=== PATIENT | female | born 1950 | race American Indian/Alaskan Native ===

== ENCOUNTER 2020-08-03 08:32 | Day surgery (SDC) | payer MEDICARE ==
[2020-08-03 09:35] LABS: Basophils % (Auto) 0.5 % (0.0-1.8); Eosinophils # (Auto) 0.1 K/mm3 (0.0-0.4); Eosinophils % (Auto) 2.4 % (0.0-4.3); Hematocrit 39.9 % (30.3-42.9); Hemoglobin 13.2 gm/dl (10.1-14.3); Lymphocytes # (Auto) 1.8 K/mm3 (1.2-5.4); Lymphocytes % (Auto) 31.3 % (13.4-35.0); Mean Corpuscular HGB Conc 33 % (30-34); Mean Corpuscular Volume 83 fl (79-97); Monocytes # (Auto) 0.6 K/mm3 (0.0-0.8); Monocytes % (Auto) 10.8 % (0.0-7.3); Platelet Count 166 K/mm3 (140-440); Red Blood Count 4.78 M/mm3 (3.65-5.03); Red Cell Distribution Width 16.4 % (13.2-15.2)
[2020-08-03 09:57] LABS: Blood Urea Nitrogen 13 mg/dL (7-17); Calcium 8.5 mg/dL (8.4-10.2); Hemolysis Index 7
[2020-08-03] MEDS ORDERED: VANCOMYCIN/NS 1 GM/250 ML 1 GM/250 ML BAG IV NR (10:00)
[2020-08-03] MEDS ORDERED: SODIUM CHLORIDE 0.45% 1000 ML 1,000 ML IV SCH (10:00)
--- NOTE | 2020-08-03 10:06 | Anesthesia Consultation ---
Anesthesia Consult and Med Hx Date of service: 08/03/20 - Airway Anesthetic Teeth Evaluation: Dentures ROM Head & Neck: Adequate Mental/Hyoid Distance: Adequate Mallampati Class: Class III Intubation Access Assessment: Possibly Difficult - Pre-Operative Health Status ASA Pre-Surgery Classification: ASA3 Proposed Anesthetic Plan: MAC - Pulmonary Hx Smoking: Yes (former smoker quit yrs ago) Hx Respiratory Symptoms: No Hx Sleep Apnea: Yes (no CPAP) - Cardiovascular System Hx Hypertension: Yes Hx Heart Attack/AMI: Yes (2011 s/p CABG; normal ST 06/2019, normal EF 03/2020) Hx Percutaneous Transluminal Coronary Angioplasty (PTCA): Yes (2011; last dose ASA/plavix 08/02/20) Hx Pacemaker: Yes Hx Internal Defibrillator: Yes - Central Nervous System CVA: No - Endocrine Hx Renal Disease: No Hx Liver Disease: No Hx Non-Insulin Dependent Diabetes: Yes Hx Thyroid Disease: No - Other Systems Hx Obesity: Yes (BMI 37) - Additional Comments Anesthesia Medical History Comments: No hx anesthetic complications.
--- NOTE | 2020-08-03 10:06 | Anesthesia Day of Surgery ---
Anesthesia Day of Surgery - Day of Surgery Patient Examined: Yes Patient H&P Reviewed: Yes Patient is NPO: Yes
[2020-08-03 10:14] LABS: BUN/Creatinine Ratio 19
[2020-08-03 10:25] LABS: INR 1.27 (0.87-1.13)
[2020-08-03 10:26] LABS: Partial Thromboplastin Time 33.3 Sec. (24.2-36.6)
[2020-08-03] MEDS ORDERED: SODIUM CHLORIDE IRRI 1000 ML 1,000 ML, .VANCOMYCIN VIAL 1,000 MG IR NR (10:30)
[2020-08-03] MEDS ORDERED: MIDAZOLAM 2 MG/2 ML INJ ONE (10:32)
[2020-08-03] MEDS ORDERED: propofoL 200 MG/20 ML VIAL IV ONE ×3 (10:33)
[2020-08-03] MEDS ORDERED: HYDROmorphone 1 MG/1 ML INJ ONE (10:33)
[2020-08-03] MEDS ORDERED: SODIUM CHLORIDE IRRI 500 ML 0 ML IR ONE (10:35)
[2020-08-03] MEDS ORDERED: LIDOCAINE (1%) 10 MG/1 ML VIAL 20 ML MDV ONE (10:36)
[2020-08-03] MEDS ORDERED: BUPIVACAINE/PF (0.5%) 5 MG/1 ML 30 ML VIAL INFILTRATI ONE (10:36)
--- NOTE | 2020-08-03 10:39 | Short Stay Summary ---
Short Stay Documentation Date of service: 08/03/20 - History Principal diagnosis: AICD in situ H&P: obtained from office Past Medical History: CAD, diabetes, hypertension, hyperlipidemia, liver disease, other (ISAAC, h/o VT) Past Surgical History: CABG, PTCA, Other (s/p AICD) Social history: smoking (former), no alcohol abuse - Allergies and Medications Current Medications: Allergies solifenacin [From Vesicare] Allergy (Verified 08/03/20 09:11) Rash Home Medications Medication Instructions Recorded Confirmed Last Taken Type Acetaminophen [Tylenol Extra 500 mg PO PRN 08/03/20 08/03/20 Unknown History Strength] Atorvastatin [Lipitor Tab] 80 mg PO QHS 08/03/20 08/03/20 08/02/20 History 1 tab Buspirone HCl [busPIRone] 15 mg PO TID 08/03/20 08/03/20 08/02/20 History 3 tab Cholecalciferol (Vitamin D3) 2,000 unit PO QDAY 08/03/20 08/03/20 08/02/20 History [Vitamin D3 2,000 UNIT CAP] 1 tab Clopidogrel [Plavix] 75 mg PO QDAY 08/03/20 08/03/20 08/02/20 History 1 tab Duloxetine HCl [Drizalma Sprinkle] 30 mg PO DAILY 08/03/20 08/03/20 08/02/20 History 1 tab Hydralazine HCl 50 mg PO BID 08/03/20 08/03/20 08/02/20 History 1 tab Hydroxychloroquine [Plaquenil] 200 mg PO BID 08/03/20 08/03/20 08/02/20 History 1 tab Isosorbide Mononitrate [Isosorbide 30 mg PO DAILY 08/03/20 08/03/20 08/02/20 History Mononitrate ER] 1 tab Leflunomide [Arava] 20 mg PO QDAY 08/03/20 08/03/20 08/02/20 History 1 tab Metoprolol [Lopressor] 100 mg PO DAILY 08/03/20 08/03/20 08/02/20 History 1 tab Multi For Her 50 Plus Softgel 1,000 mg PO DAILY 08/03/20 08/03/20 08/02/20 History 1 tab Omeprazole 40 mg PO DAILY 08/03/20 08/03/20 08/02/20 History 1 tab Pregabalin [Lyrica] 75 mg PO TID 08/03/20 08/03/20 08/02/20 History 1 tab Spironolactone [Aldactone] 25 mg PO QDAY 08/03/20 08/03/20 08/02/20 History 1 tab Vitamin E 400 unit PO DAILY 08/03/20 08/03/20 08/02/20 History 1 tab Active Medications Sodium Chloride 1,000 ml/ (Vancomycin HCl 1,000 mg) 0 ml IR INTRAOP NR Stop: 08/03/20 11:00 Sodium Chloride (Nacl 0.45% 1000 Ml) 1,000 mls @ 50 mls/hr IV DIRECT JEN Vancomycin HCl (Vancomycin/Ns 1 Gm/250 Ml) 1 gm in 250 mls @ 166.667 mls/hr IV PREOP NR; Protocol Stop: 08/03/20 16:00 - Physical exam General appearance: no acute distress Integumentary: no rash HEENT: Atraumatic Lungs: Clear to auscultation Heart: Normal S1, Normal S2 Gastrointestinal: normal Extremities: No edema, normal temperature, normal color Neurological: Normal speech, Normal tone, Sensation intact - Brief post op/procedure progress note Date of procedure: 08/03/20 Pre-op diagnosis: AICD in situ Post-op diagnosis: same Surgeon: ROMINA HOFFMAN Estimated blood loss: none Pathology: none Condition: stable - Hospital course Hospital course: Pt with existing AICD presented on 08/03/20 for elective exchange of AICD. S/p successful exchange to Biotronik ICD. Pt tolerated procedure well. Currently stable with no complaints. - Disposition Condition at discharge: Good Disposition: DC-01 TO HOME OR SELFCARE - Discharge Diagnoses (1) AICD (automatic cardioverter/defibrillator) present Status: Chronic Short Stay Discharge Plan Activity: other (as directed on post-implant education sheet provided at bed side) Diet: low cholesterol, low salt, diabetic Wound: per your surgeon's advice Special Instructions: other (Follow-up for incision check in 7-10 days) Follow up with: SHEREEN NAVARRETE MD [Primary Care Provider] - 7 Days EPIFANIO AGGARWAL MD [Staff Physician] - 14 Days
--- NOTE | 2020-08-03 10:46 | Electrocardiograph Report ---
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
[2020-08-03] MEDS ORDERED: SODIUM CHLORIDE IRRI 500 ML 500 ML IR ONE (11:08)
[2020-08-03] MEDS ORDERED: .VANCOMYCIN VIAL 1,000 MG in SODIUM CHLORIDE IRRI 1000 ML 1,000 ML IRRIGATION ONE (11:41)
[2020-08-03 13:31] VITALS: BP 134/66
--- NOTE | 2020-08-03 14:12 | Post Anesthesia Evaluation ---
- Post Anesthesia Evaluation Patient Participated: Yes Airway Patent: Yes Stable Respiratory Function: Yes Nausea/Vomiting: No Temp > 96.8F: Yes Pain Manageable: Yes Adequeate Hydration: Yes Anesthesia Complications: No
== END 2020-08-03 14:45 | disposition home or self-care (01) ==
LOC: CATHLABREC 08:32
PROVIDERS: ATTEND Internal Medicine Cardiovascular Disease
DX: Z45.02 Encounter for adjustment and management of automatic implantable cardiac defibrillator (principal); I25.10 Atherosclerotic heart disease of native coronary artery without angina pectoris; E11.9 Type 2 diabetes mellitus without complications; I10 Essential (primary) hypertension; E78.5 Hyperlipidemia, unspecified; G47.33 Obstructive sleep apnea (adult) (pediatric); K21.9 Gastro-esophageal reflux disease without esophagitis; E66.9 Obesity, unspecified; M19.90 Unspecified osteoarthritis, unspecified site; F32.9 Major depressive disorder, single episode, unspecified; F41.9 Anxiety disorder, unspecified; Z98.890 Other specified postprocedural states; Z88.8 Allergy status to other drugs, medicaments and biological substances; Z91.040 Latex allergy status; Z88.0 Allergy status to penicillin; Z79.899 Other long term (current) drug therapy; Z87.891 Personal history of nicotine dependence; Z95.810 Presence of automatic (implantable) cardiac defibrillator; Z98.49 Cataract extraction status, unspecified eye; Z68.37 Body mass index [BMI] 37.0-37.9, adult; Z90.49 Acquired absence of other specified parts of digestive tract; Z86.73 Personal history of transient ischemic attack (TIA), and cerebral infarction without residual deficits
CPT/HCPCS: 33262; 36415; 80048; 85025; 85610; 85730; 93005; C1722; J1170; J2250; J2704; J3370; J7030

== ENCOUNTER 2020-09-17 06:30 | Day surgery (SDC) | payer MEDICARE ==
[2020-09-17] MEDS ORDERED: ASPIRIN 81 MG TAB CHEW PO SCH (08:00)
[2020-09-17 08:01] LABS: Blood Urea Nitrogen 10 mg/dL (7-17); Calcium 9.4 mg/dL (8.4-10.2); Hemolysis Index 3
[2020-09-17 08:08] LABS: BUN/Creatinine Ratio 17
[2020-09-17] MEDS ORDERED: HEPARIN/NS 5000 UNIT/500ML 1,000 ML IR ONE (08:16)
[2020-09-17 08:44] LABS: INR 1.1 (0.87-1.13)
[2020-09-17 08:45] LABS: Hematocrit 39.6 % (30.3-42.9); Mean Corpuscular HGB Conc 33 % (30-34); Mean Corpuscular Volume 84 fl (79-97); Partial Thromboplastin Time 37.8 Sec. (24.2-36.6); Platelet Count 160 K/mm3 (140-440); Red Cell Distribution Width 14.7 % (13.2-15.2)
[2020-09-17 08:46] LABS: Eosinophils # (Auto) 0.1 K/mm3 (0.0-0.4); Eosinophils % (Auto) 2.7 % (0.0-4.3); Lymphocytes # (Auto) 1.4 K/mm3 (1.2-5.4); Monocytes # (Auto) 0.5 K/mm3 (0.0-0.8); Monocytes % (Auto) 11.3 % (0.0-7.3)
[2020-09-17] MEDS ORDERED: POTASSIUM CHLORIDE ER 20 MEQ TAB PO SCH (09:00)
[2020-09-17] MEDS: SODIUM CHLORIDE 0.9% 500 ML 500 ML IV SCH ×2 (09:09→09:44)
[2020-09-17] MEDS: MIDAZOLAM 2 MG/2 ML INJ ONE ×2 (09:39→09:42)
[2020-09-17] MEDS: LIDOCAINE (2%) 20 MG/1 ML VIAL 20 ML MDV INFILTRATI ONE ×3 (09:39→10:03)
[2020-09-17] MEDS: fentaNYL 100 MCG/2 ML INJ ONE ×2 (09:39→09:42)
[2020-09-17] MEDS: HEPARIN 10,000 UNITS/10 ML VIAL ONE ×2 (09:40→09:45)
[2020-09-17] MEDS: VERAPAMIL 5 MG/2 ML INJ ONE ×2 (09:40→09:45)
[2020-09-17] MEDS ORDERED: hydrALAZINE 20 MG/1 ML INJ ONE (10:41)
--- NOTE | 2020-09-17 10:53 | Cardiac Catherization Report ---
DATE OF SERVICE: 09/17/2020 INDICATION: The patient is a 70-year-old female with history of aortocoronary bypass surgery x1 in 08/2011 with right internal mammary graft to the PDA, subsequently underwent intervention of the mid LAD with a drug-eluting stent on 04/11/2018. Presently, she is having atypical chest pains. Negative stress nuclear imaging in 2019. Because of persistent chest pain, she was scheduled for cardiac catheterization for definitive diagnosis and treatment. The patient is aware of the procedure, potential complications, and alternatives of therapy available. DESCRIPTION OF PROCEDURE: The patient was brought to the catheterization laboratory in a fasting condition. The patient was evaluated for moderate sedation and was felt to be an appropriate candidate for moderate sedation and received IV Versed and fentanyl. Subsequently, initially right radial artery was prepared radial access was obtained using a 21-gauge arterial puncture needle. Received 5 mg of intra-arterial verapamil and 3000 units of intravenous heparin. Subsequently, 5-Liberian multipurpose catheter and 5-Liberian JR4 catheter was used to navigate the right subclavian. Angiograms of the right internal mammary graft were obtained nonselectively. This shows patent right internal mammary graft. However, there is a 360-degree loop making manipulation of the catheter difficult even though the wire and catheter could be advanced into the ascending aorta. It could not reach the aortic root. Because of difficulty with manipulation of the catheter, procedure was converted to femoral access. After giving local anesthesia and under fluoroscopy, right femoral artery puncture was made using 5-Liberian micropuncture needle. Subsequently, a 5-Liberian sheath was introduced. A 5 Liberian JL3.5 catheter was used to obtain the angiograms of the left coronary artery and a 5-Liberian JR4 catheter was used for obtaining the angiograms of the right coronary artery. At the end of the procedure, catheter and sheath were removed. Hemostasis was achieved in the right radial artery using pressure bandage. Similarly, manual pressure was applied in the right groin and good hemostasis was achieved. The patient was monitored using pulse oximetry, EKG monitoring and hemodynamic monitoring throughout the procedure. The patient's sedation started at 9:42 a.m. and ended at 10:16 a.m. The patient at the end of the procedure is communicating normally, breathing normally. No focal deficits noted. Following findings were noted. HEMODYNAMICS: Opening aortic pressure 176/90. Left ventricular pressure 176/22. No gradient across the aortic valve. Estimated ejection fraction 55%. Left ventriculogram done in COSME projection shows normal-sized left ventricle with normal contractility. Ejection fraction was felt to be 55%. LVEDP was elevated up to 22 mmHg. Only limited amount of dye was injected and mitral regurgitation could not be evaluated. Right coronary artery dominant vessel, shows stent in the ostium and proximal part. This is 100% occluded. Right internal mammary graft to the PDA was widely patent and appears to be smooth and filling the PDA and retrogradely in to proximal RCA up to the occluded stent very well. There is no significant disease noted in the RCA except for occlusion at the ostium with previous stent. Left coronary artery: Left main without significant disease. LAD shows mild smooth irregularities. Mid LAD shows widely patent stent. Circumflex artery and its branches showed mild smooth irregularities. Collaterals none. FINAL IMPRESSION: 1. Normal-sized left ventricle with normal contractility. 2. Occluded RCA at the ostium with protection from right internal mammary graft to the PDA, which is widely patent. Left coronary system was patent stent in the mid LAD with a mild smooth irregularities somewhere. At this time, patient has only mild nonobstructive disease. Considering this, would continue risk factor modification and medical therapy. It is to be noted the patient has very tortuous right subclavian making manipulation of the catheter difficult requiring femoral access. TID: [id number] RECEIPT: [id number] SHASTA/ALVARO SMITH
--- NOTE | 2020-09-17 13:51 | Short Stay Summary ---
Short Stay Documentation Date of service: 09/17/20 - History H&P: obtained from office - Allergies and Medications Current Medications: Allergies AMADOR Inhibitors Allergy (Verified 08/03/20 10:50) Angioedema amlodipine Allergy (Verified 08/03/20 10:50) Swelling ciprofloxacin Allergy (Verified 08/03/20 10:50) Swelling clonidine Allergy (Verified 08/03/20 10:50) palpitation, chest tightness dulaglutide [From Trulicity] Allergy (Verified 08/03/20 10:50) Rash latex Allergy (Verified 08/03/20 10:50) Rash levofloxacin [From Levaquin] Allergy (Verified 08/03/20 10:50) Rash metformin Allergy (Verified 08/03/20 10:50) Nausea metoprolol Allergy (Verified 08/03/20 10:50) alopecia nickel Allergy (Verified 08/03/20 10:50) Rash Penicillins Allergy (Verified 08/03/20 10:50) Rash solifenacin [From Vesicare] Allergy (Verified 08/03/20 09:11) Rash Home Medications Medication Instructions Recorded Confirmed Last Taken Type Acetaminophen [Tylenol Extra 500 mg PO PRN 08/03/20 09/17/20 09/16/20 History Strength] 2 TAB Atorvastatin [Lipitor] 80 mg PO QHS 08/03/20 09/17/20 09/16/20 History 1 TAB Buspirone HCl [busPIRone] 15 mg PO TID 08/03/20 09/17/20 09/16/20 History 3 TABS Cholecalciferol (Vitamin D3) 2,000 unit PO QDAY 08/03/20 09/17/20 09/16/20 History [Vitamin D3 2,000 UNIT CAP] 1 TAB Clopidogrel [Plavix] 75 mg PO QDAY 08/03/20 09/17/20 09/17/20 07:45 History 75 MG Duloxetine HCl [Drizalma Sprinkle] 30 mg PO DAILY 08/03/20 09/17/20 09/16/20 History 1 TAB Hydralazine HCl 50 mg PO BID 08/03/20 09/17/20 09/16/20 History 2 TAB Hydroxychloroquine [Plaquenil] 200 mg PO BID 08/03/20 09/17/20 09/16/20 History 1 TAB Isosorbide Mononitrate [Isosorbide 60 mg PO DAILY 08/03/20 09/17/20 09/16/20 History Mononitrate ER] 1 TAB Leflunomide [Arava] 20 mg PO QDAY 08/03/20 09/17/20 09/16/20 History 1 TAB Metoprolol [Lopressor TAB] 100 mg PO DAILY 08/03/20 09/17/20 09/16/20 History 1 TAB Multi For Her 50 Plus Softgel 1,000 mg PO DAILY 08/03/20 09/17/20 09/16/20 History 1 TAB Omeprazole 40 mg PO DAILY 08/03/20 09/17/20 09/16/20 History 1 TAB Pregabalin 75 mg PO TID 08/03/20 09/17/20 09/16/20 History 3 TABS Spironolactone [Aldactone] 25 mg PO QDAY 08/03/20 09/17/20 09/16/20 History 1 TAB Vitamin E 400 unit PO DAILY 08/03/20 09/17/20 09/16/20 History 1 TAB Calcium Carb/Magnesium Hydrox 50 mcg PO DAILY 09/17/20 09/17/20 09/16/20 History [Antacid 1000-200 mg Tab Chew] 1 tab Cetirizine HCl [ZyrTEC 10mg cap] 10 mg PO DAILY PRN 09/17/20 09/17/20 Unknown History Ferrous Sulfate [Iron 325 MG] 325 mg PO PRN 09/17/20 09/17/20 09/15/20 History 1 tab Nitroglycerin [Nitrostat] 0.4 mg SL Q5M PRN 09/17/20 09/17/20 Unknown History hydroCHLOROthiazide [HCTZ] 25 mg PO QDAY 09/17/20 09/17/20 09/16/20 History 1 TAB Active Medications Aspirin (Aspirin 81 Mg Tab Chew) 81 mg PO ONCE JEN Stop: 09/17/20 17:00 Last Admin: 09/17/20 07:47 Dose: 81 mg Documented by: Sodium Chloride (Nacl 0.9% 500 Ml) 500 mls @ 50 mls/hr IV DIRECT JEN Stop: 09/17/20 17:59 Last Admin: 09/17/20 09:44 Dose: 50 mls/hr Documented by: - Physical exam Integumentary: other (Right wrist cath site inspected Telfa Tegaderm in place no bleeding or hematoma noted, right groin cath site inspected Telfa Tegaderm in place no bleeding or hematoma noted.) - Brief post op/procedure progress note Date of procedure: 09/17/20 Pre-op diagnosis: Chest pain Post-op diagnosis: other (Mild nonobstructive coronary artery disease) Procedure: LHCsee dictated cath report Anesthesia: local Estimated blood loss: none Condition: stable - Disposition Condition at discharge: Good Disposition: DC-01 TO HOME OR SELFCARE Short Stay Discharge Plan Activity: advance as tolerated Diet: low fat, low cholesterol, low salt Wound: open to air, keep clean and dry, per your surgeon's advice Follow up with: SHEREEN NAVARRETE MD [Primary Care Provider] - 7 Days EPIFANIO ANGELA MD [Staff Physician] - 7 Days (Patient should follow-up with Dr Angela, [facility] revenue tax specialist in our [place] location on 10/04/2020 at 9:30 AM. #[phone]) Forms: CardCath PCI D/C Instructions
[2020-09-17 14:04] VITALS: BP 122/69
--- NOTE | 2020-09-20 17:39 | Electrocardiograph Report ---
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
== END 2020-09-17 14:55 | disposition home or self-care (01) ==
LOC: CATHLABREC 06:30
PROVIDERS: ATTEND Internal Medicine
DX: R07.89 Other chest pain (principal); E78.00 Pure hypercholesterolemia, unspecified; I10 Essential (primary) hypertension; G47.30 Sleep apnea, unspecified; K21.9 Gastro-esophageal reflux disease without esophagitis; E66.9 Obesity, unspecified; M19.90 Unspecified osteoarthritis, unspecified site; E11.9 Type 2 diabetes mellitus without complications; F32.9 Major depressive disorder, single episode, unspecified; F41.9 Anxiety disorder, unspecified; D64.9 Anemia, unspecified; Z88.8 Allergy status to other drugs, medicaments and biological substances; Z88.0 Allergy status to penicillin; Z79.899 Other long term (current) drug therapy; Z87.891 Personal history of nicotine dependence; Z95.810 Presence of automatic (implantable) cardiac defibrillator; Z98.49 Cataract extraction status, unspecified eye; Z90.49 Acquired absence of other specified parts of digestive tract; Z98.890 Other specified postprocedural states; Z83.3 Family history of diabetes mellitus; Z82.49 Family history of ischemic heart disease and other diseases of the circulatory system
CPT/HCPCS: 36415; 80048; 85025; 85610; 85730; 93005; 93459; 99156; 99157; C1894; J0360; J1644; J2250; J3010; J7040; Q9967